=== PATIENT | male | born 2000 | race Two or more races ===

== ENCOUNTER 2021-12-23 20:07 | Emergency (ER) | payer MEDICAID ==
[~2021-12-23] VITALS: Ht 182.9 cm; Wt 68.0 kg
[2021-12-23 20:15] VITALS: BP 123/64
== END 2021-12-24 01:52 | disposition left against medical advice (07) ==
LOC: ER 20:07 → EDBD 20:07 → ER 12-24 01:52
DX: R10.9 Unspecified abdominal pain (principal); Z53.21 Procedure and treatment not carried out due to patient leaving prior to being seen by health care provider